=== PATIENT | male | born 1945 | race African-American/Black ===

== ENCOUNTER 2023-01-18 23:35 | Inpatient (IN) | payer OTHER, MEDICAID ==
[~2023-01-18] VITALS: Ht 175.3 cm; Wt 63.3 kg
[2023-01-19] MEDS ORDERED: ONDANSETRON HCL 4 MG/2 ML VIAL IV PRN (00:15)
[2023-01-19] MEDS ORDERED: ACETAMINOPHEN 325 MG TAB PO PRN (00:15)
[2023-01-19] MEDS ORDERED: SODIUM CHLORIDE 0.9% 1,000 ML IV SCH (00:15)
[2023-01-19] MEDS ORDERED: AMIO200T33 PEG (01:16)
[2023-01-19] MEDS ORDERED: METO25TA5 PEG (01:16)
[2023-01-19] MEDS ORDERED: FAMO-12 PEG (01:16)
[2023-01-19] MEDS ORDERED: APIX5TAB PEG (01:16)
[2023-01-19] MEDS ORDERED: ATOR40TA52 PEG (01:16)
[2023-01-19] MEDS ORDERED: HYDR-4902 PEG (01:16)
[2023-01-19] MEDS ORDERED: BISA10SU45 RE (01:16)
[2023-01-19 03:30] VITALS: BP 127/66
[2023-01-19] MEDS: HYDROcodone-ACET 5/325MG TAB PO PRN ×2 (04:18→13:57)
[2023-01-19 05:00] VITALS: BP 140/56
[2023-01-19 06:13] LABS: Basophils # (auto) 0 10 ^3/uL (0-0.2); Basophils % (auto) 0.7 % (0.0-2.0); Eosinophils # (auto) 0.1 10 ^3/uL (0-0.8); Eosinophils % (auto) 1.4 % (0.0-7.0); Hematocrit 33.3 % (41.0-53.0); Hemoglobin 11.3 g/dL (13.5-17.5); Lymphocytes # (auto) 1.5 10 ^3/uL (0.4-5.4); Lymphocytes % (auto) 32.7 % (10.0-50.0); Mean Corpuscular Hemoglobin 31.4 pg (28.0-32.0); Mean Corpuscular Hgb Conc. 33.9 g/dL (32.0-36.0); Mean Corpuscular Volume 92.6 fL (80.0-100.0); Monocytes # (auto) 0.7 10 ^3/uL (0-1.3); Monocytes % (auto) 14.3 % (0.0-12.0); Neutrophils # (auto) 2.4 10 ^3/uL (1.6-8.6); Neutrophils % (auto) 50.9 % (37.0-80.0); Nucleated Red Blood Cells % 0.1 %; White Blood Cell 4.6 10^3/uL (4.4-10.8)
[2023-01-19 06:15] LABS: Calcium 8.6 mg/dL (8.5-10.1)
[2023-01-19 06:20] LABS: BUN/Creatinine Ratio 6.6 (10.0-20.0)
[2023-01-19 09:00] VITALS: BP 120/69
[2023-01-19] MEDS ORDERED: ASPirin-EC 81 mg tab PO SCH (10:00)
[2023-01-19] MEDS: AMIODARONE HCL 200 MG TAB PEG SCH (10:28)
[2023-01-19] MEDS: FAMOTIDINE 20 MG TAB PEG SCH (10:29)
[2023-01-19 13:00] VITALS: BP 124/70
[2023-01-19] MEDS: APIXABAN 5 MG TAB PO SCH ×2 (13:57→21:43)
[2023-01-19 16:26] VITALS: BP 115/77
[2023-01-19] MEDS: ATORVASTATIN 20 MG TAB PO SCH (21:43)
[2023-01-19 22:00] VITALS: BP 123/77
[2023-01-20 05:00] VITALS: BP 135/72
[2023-01-20 06:05] LABS: Basophils # (auto) 0 10 ^3/uL (0-0.2); Basophils % (auto) 0.7 % (0.0-2.0); Eosinophils # (auto) 0.1 10 ^3/uL (0-0.8); Eosinophils % (auto) 2.4 % (0.0-7.0); Hematocrit 31.4 % (41.0-53.0); Hemoglobin 10.7 g/dL (13.5-17.5); Lymphocytes # (auto) 1.7 10 ^3/uL (0.4-5.4); Mean Corpuscular Hemoglobin 31.5 pg (28.0-32.0); Mean Corpuscular Hgb Conc. 33.9 g/dL (32.0-36.0); Mean Corpuscular Volume 92.9 fL (80.0-100.0); Monocytes # (auto) 0.7 10 ^3/uL (0-1.3); Monocytes % (auto) 14.4 % (0.0-12.0); Neutrophils # (auto) 2.1 10 ^3/uL (1.6-8.6); Neutrophils % (auto) 45.5 % (37.0-80.0); Nucleated Red Blood Cells % 0.2 %; Red Blood Cells 3.38 10^6/uL (4.5-5.90); White Blood Cell 4.7 10^3/uL (4.4-10.8)
[2023-01-20 06:22] LABS: BUN/Creatinine Ratio 7.8 (10.0-20.0); Calcium 8.4 mg/dL (8.5-10.1); Potassium 4.3 mmol/L (3.5-5.1)
[2023-01-20 06:27] LABS: Red Cell Distribution Width 27.6 % (11.8-14.3)
[2023-01-20] MEDS ORDERED: SODIUM CHL 0.9% 1000 ML BAG XX ONE (07:00)
[2023-01-20 09:00] VITALS: BP 126/64
[2023-01-20] MEDS: AMIODARONE HCL 200 MG TAB PEG SCH (11:38)
[2023-01-20] MEDS ORDERED: LISI2.5T47 PO (11:39)
[2023-01-20] MEDS: FAMOTIDINE 20 MG TAB PEG SCH (11:39)
[2023-01-20] MEDS: APIXABAN 5 MG TAB PO SCH ×2 (11:39→21:30)
[2023-01-20 13:00] VITALS: BP 136/68
[2023-01-20] MEDS ORDERED: ALBUMIN 25% 100 ML IV ONE (14:30)
[2023-01-20 16:36] VITALS: BP 149/78
[2023-01-20] MEDS: ATORVASTATIN 20 MG TAB PO SCH (21:29)
[2023-01-20 22:06] VITALS: BP 121/67
[2023-01-21] MEDS ORDERED: MUPI2OIN2 (01:07)
[2023-01-21 05:00] VITALS: BP 121/60
[2023-01-21 07:17] LABS: Basophils # (auto) 0 10 ^3/uL (0-0.2); Basophils % (auto) 0.8 % (0.0-2.0); Eosinophils # (auto) 0.1 10 ^3/uL (0-0.8); Eosinophils % (auto) 2.2 % (0.0-7.0); Hematocrit 33.9 % (41.0-53.0); Hemoglobin 11.3 g/dL (13.5-17.5); Lymphocytes # (auto) 1.6 10 ^3/uL (0.4-5.4); Lymphocytes % (auto) 35.7 % (10.0-50.0); Mean Corpuscular Hemoglobin 31.2 pg (28.0-32.0); Mean Corpuscular Hgb Conc. 33.3 g/dL (32.0-36.0); Mean Corpuscular Volume 93.6 fL (80.0-100.0); Monocytes # (auto) 0.7 10 ^3/uL (0-1.3); Monocytes % (auto) 14.9 % (0.0-12.0); Neutrophils # (auto) 2.1 10 ^3/uL (1.6-8.6); Neutrophils % (auto) 46.4 % (37.0-80.0); Nucleated Red Blood Cells % 0.1 %; Red Blood Cells 3.62 10^6/uL (4.5-5.90); White Blood Cell 4.5 10^3/uL (4.4-10.8)
[2023-01-21 07:39] LABS: Red Cell Distribution Width 27.4 % (11.8-14.3)
[2023-01-21 08:20] LABS: Anion Gap 6 (5-15); BUN/Creatinine Ratio 6.1 (10.0-20.0); Blood Urea Nitrogen 22 mg/dL (7-18); Calcium 8.4 mg/dL (8.5-10.1); Carbon Dioxide 25 mmol/L (21-32); Chloride 103 mmol/L (98-107); GFR African American 21 mL/min; GFR Non-African American 17 mL/min; Glucose 76 mg/dL (74-106); Potassium 4.5 mmol/L (3.5-5.1); Sodium 134 mmol/L (136-145)
[2023-01-21 09:28] VITALS: BP 134/71
[2023-01-21] MEDS ORDERED: MUPIROCIN 2% OINT 15gm or 22gm FOR MRSA NARES EACHNOSTRI SCH (10:00)
[2023-01-21] MEDS: APIXABAN 5 MG TAB PO SCH (10:15)
[2023-01-21] MEDS: FAMOTIDINE 20 MG TAB PEG SCH (10:15)
[2023-01-21] MEDS: AMIODARONE HCL 200 MG TAB PEG SCH (10:16)
[2023-01-21 13:23] VITALS: BP 140/59
[2023-01-21 16:24] VITALS: BP 139/59
== END 2023-01-21 19:03 | disposition home health service (06) | DRG 64 ==
LOC: TELE-WESTW 23:35
PROVIDERS: ADMIT Nurse Practitioner Family; ATTEND Nurse Practitioner Family
PROC: 5A1D70Z Performance of Urinary Filtration, Intermittent, Less than 6 Hours Per Day (ICD-10-PCS; principal; 2023-01-20)
DX: I63.311 Cerebral infarction due to thrombosis of right middle cerebral artery (principal); N18.6 End stage renal disease; I13.2 Hypertensive heart and chronic kidney disease with heart failure and with stage 5 chronic kidney disease, or end stage renal disease; I69.354 Hemiplegia and hemiparesis following cerebral infarction affecting left non-dominant side; G93.40 Encephalopathy, unspecified; R47.01 Aphasia; D63.1 Anemia in chronic kidney disease; I50.9 Heart failure, unspecified; B95.62 Methicillin resistant Staphylococcus aureus infection as the cause of diseases classified elsewhere; I48.91 Unspecified atrial fibrillation; E78.5 Hyperlipidemia, unspecified; F17.200 Nicotine dependence, unspecified, uncomplicated; H53.462 Homonymous bilateral field defects, left side; Z22.322 Carrier or suspected carrier of Methicillin resistant Staphylococcus aureus; Z74.01 Bed confinement status; Z82.49 Family history of ischemic heart disease and other diseases of the circulatory system; Z93.1 Gastrostomy status; Z99.2 Dependence on renal dialysis
CPT/HCPCS: 36415; 70551; 80048; 80061; 82306; 83036; 83970; 84100; 84484; 85025; 87081; 87340; 90935; 93306; 95819; 97110; 97163; 97530; G0378; J1642; P9047

== ENCOUNTER 2023-02-15 08:02 | Inpatient (IN) | payer OTHER, MEDICAID ==
[~2023-02-15] VITALS: Ht 182.9 cm; Wt 68.4 kg
[~2023-02-15 08:02] MED LIST: AMIO200T33 PEG; APIX5TAB PEG; ATOR40TA52 PEG; BISA10SU45 RE; FAMO-12 PEG; HYDR-4902 PEG; LISI2.5T47 PO; METO25TA5 PEG; MUPI2OIN2
[2023-02-15] MEDS ORDERED: SODIUM CHLORIDE 0.9% 1,000 ML IV ONE (08:30)
[2023-02-15 08:32] LABS: Basophils # (auto) 0 10 ^3/uL (0-0.2); Basophils % (auto) 0.3 % (0.0-2.0); Eosinophils # (auto) 0.1 10 ^3/uL (0-0.8); Eosinophils % (auto) 1.2 % (0.0-7.0); Hematocrit 39.6 % (41.0-53.0); Hemoglobin 13.3 g/dL (13.5-17.5); Lymphocytes # (auto) 1.7 10 ^3/uL (0.4-5.4); Lymphocytes % (auto) 33.8 % (10.0-50.0); Mean Corpuscular Hemoglobin 32.4 pg (28.0-32.0); Mean Corpuscular Hgb Conc. 33.5 g/dL (32.0-36.0); Mean Corpuscular Volume 96.7 fL (80.0-100.0); Monocytes # (auto) 0.6 10 ^3/uL (0-1.3); Monocytes % (auto) 11.4 % (0.0-12.0); Neutrophils # (auto) 2.7 10 ^3/uL (1.6-8.6); Neutrophils % (auto) 53.3 % (37.0-80.0); Nucleated Red Blood Cells % 0.1 %; Red Blood Cells 4.09 10^6/uL (4.5-5.90); Red Cell Distribution Width 22.5 % (11.8-14.3)
[2023-02-15 09:03] LABS: Potassium 4.4 mmol/L (3.5-5.1)
[2023-02-15 09:10] LABS: Albumin 2.6 g/dL (3.4-5.0); BUN/Creatinine Ratio 7.8 (10.0-20.0); Bilirubin, Total 0.8 mg/dL (0.2-1.0); Calcium 8.8 mg/dL (8.5-10.1); Magnesium 2.7 mg/dL (1.6-2.6); Total Protein 6.2 g/dL (6.4-8.2)
[2023-02-15] MEDS ORDERED: LORazepam 2MG/ML-1ML VIAL IV PRN (12:45)
[2023-02-15] MEDS ORDERED: HYDROcodone-ACET 5/325MG TAB PO PRN (12:45)
[2023-02-15] MEDS ORDERED: MORPHINE SULFATE INJ 2 MG/ml SYRG IV PRN (12:45)
[2023-02-15] MEDS ORDERED: ACETAMINOPHEN 325 MG TAB PO PRN (12:45)
[2023-02-15] MEDS ORDERED: DOCUSATE SOD 100 MG CAP PO PRN (12:45)
[2023-02-15] MEDS ORDERED: HYDROcodone-ACET 5/325MG TAB PEG PRN (12:45)
[2023-02-15] MEDS ORDERED: NITROGLYCERIN 0.4 MG SL TAB SL PRN (12:45)
[2023-02-15] MEDS: SODIUM CHLORIDE 0.9% 1,000 ML IV SCH (14:24)
[2023-02-15] MEDS ORDERED: cefTRIAXone 1GM/50ML D5W 50 ML IV ONE (17:45)
[2023-02-15] MEDS ORDERED: VANCOMYCIN PER PHARMACY 0 MG IV SCH (17:45)
[2023-02-15] MEDS ORDERED: VANCOMYCIN 1GM/250ML 250 ML IV ONE (18:30)
[2023-02-15] MEDS: APIXABAN 5 MG TAB PEG SCH (21:56)
[2023-02-16 05:00] VITALS: BP 106/67
[2023-02-16] MEDS: SODIUM CHLORIDE 0.9% 1,000 ML IV SCH ×2 (05:25→23:00)
[2023-02-16 08:00] VITALS: BP 129/71
[2023-02-16 08:31] LABS: Basophils # (auto) 0 10 ^3/uL (0-0.2); Basophils % (auto) 0.8 % (0.0-2.0); Eosinophils # (auto) 0.1 10 ^3/uL (0-0.8); Eosinophils % (auto) 1.7 % (0.0-7.0); Hematocrit 36.2 % (41.0-53.0); Hemoglobin 12.2 g/dL (13.5-17.5); Lymphocytes # (auto) 1.4 10 ^3/uL (0.4-5.4); Lymphocytes % (auto) 32.6 % (10.0-50.0); Mean Corpuscular Hemoglobin 32.5 pg (28.0-32.0); Mean Corpuscular Hgb Conc. 33.7 g/dL (32.0-36.0); Mean Corpuscular Volume 96.5 fL (80.0-100.0); Monocytes # (auto) 0.5 10 ^3/uL (0-1.3); Monocytes % (auto) 12.7 % (0.0-12.0); Neutrophils # (auto) 2.2 10 ^3/uL (1.6-8.6); Neutrophils % (auto) 52.2 % (37.0-80.0); Nucleated Red Blood Cells % 0.1 %; Red Blood Cells 3.75 10^6/uL (4.5-5.90); White Blood Cell 4.1 10^3/uL (4.4-10.8)
[2023-02-16 08:44] LABS: Red Cell Distribution Width 21.8 % (11.8-14.3)
[2023-02-16] MEDS ORDERED: SODIUM CHL 0.9% 1000 ML BAG XX ONE (08:45)
[2023-02-16 08:55] LABS: Calcium 8.4 mg/dL (8.5-10.1); Potassium 5.2 mmol/L (3.5-5.1)
[2023-02-16 08:57] LABS: BUN/Creatinine Ratio 7.7 (10.0-20.0)
[2023-02-16 09:00] VITALS: BP 129/71
[2023-02-16] MEDS ORDERED: cefTRIAXone 1GM/50ML D5W 50 ML IV SCH (09:00)
[2023-02-16] MEDS ORDERED: FAMOTIDINE 20 MG TAB PEG SCH (10:00)
[2023-02-16] MEDS: APIXABAN 5 MG TAB PEG SCH ×2 (10:33→23:03)
[2023-02-16] MEDS: AMIODARONE HCL 200 MG TAB PEG SCH (10:33)
[2023-02-16] MEDS: LISINOPRIL 5 MG TAB PEG SCH (10:34)
[2023-02-16] MEDS: ATORVASTATIN 20 MG TAB PEG SCH (10:34)
[2023-02-16 13:00] VITALS: BP 114/50
[2023-02-16 15:45] LABS: BUN/Creatinine Ratio 6.7 (10.0-20.0); Calcium 8.1 mg/dL (8.5-10.1)
[2023-02-16] MEDS ORDERED: VANCOMYCIN 1GM/250ML 250 ML IV ONE (16:00)
[2023-02-16 16:01] LABS: Potassium 2.9 mmol/L (3.5-5.1)
[2023-02-16 16:55] VITALS: BP 114/48
[2023-02-16] MEDS ORDERED: POTASSIUM CHL 20 Meq TABLET PO ONE (17:15)
[2023-02-16] MEDS ORDERED: AMOX500T92 PO (17:51)
[2023-02-16] MEDS ORDERED: POTASSIUM CHL 20MEQ/100ML 100 ML IV ONE (18:00)
[2023-02-16] MEDS ORDERED: AMOXICILLIN/CLAVULAN 500 MG TAB PO SCH (20:00)
[2023-02-16 22:00] VITALS: BP 105/59
[2023-02-16] MEDS: AMOXICILLIN/CLAV 200MG/5ML SUSP 50ML PO SCH (23:06)
[2023-02-17 05:00] VITALS: BP 121/60
[2023-02-17 06:19] LABS: Anion Gap 7 (5-15); Blood Urea Nitrogen 37 mg/dL (7-18); Calcium 8.4 mg/dL (8.5-10.1); Carbon Dioxide 26 mmol/L (21-32); Chloride 102 mmol/L (98-107); GFR African American 14 mL/min; GFR Non-African American 11 mL/min; Glucose 67 mg/dL (74-106); Potassium 3.9 mmol/L (3.5-5.1); Sodium 135 mmol/L (136-145)
[2023-02-17 08:05] VITALS: BP 120/63
[2023-02-17 09:00] VITALS: BP 120/63
[2023-02-17] MEDS: APIXABAN 5 MG TAB PEG SCH (10:56)
[2023-02-17] MEDS: AMIODARONE HCL 200 MG TAB PEG SCH (10:56)
[2023-02-17] MEDS: ATORVASTATIN 20 MG TAB PEG SCH (10:57)
[2023-02-17] MEDS: LISINOPRIL 5 MG TAB PEG SCH (10:57)
[2023-02-17] MEDS: AMOXICILLIN/CLAV 200MG/5ML SUSP 50ML PO SCH (10:58)
[2023-02-17 12:12] LABS: Hepatitis C Antibody Negative (Negative)
[2023-02-17 12:13] LABS: Hepatitis A Ab IgM Negative; Hepatitis B Core IgM Negative
[2023-02-17 12:21] VITALS: BP_SYST 115; BP_SYST 120; BP_DIAS 50; BP_DIAS 63
[2023-02-17 13:00] VITALS: BP 115/50
[2023-02-17] MEDS: SODIUM CHLORIDE 0.9% 1,000 ML IV SCH (14:45)
[2023-02-17 16:35] VITALS: BP 105/62
== END 2023-02-17 19:15 | disposition home health service (06) | DRG 70 ==
LOC: ER 08:02 → EDUNIT# 08:02 → EDBD 08:02 → TELE 12:58 → TELE-CENTR 23:44
PROVIDERS: ADMIT Internal Medicine; ATTEND Internal Medicine
PROC: 5A1D70Z Performance of Urinary Filtration, Intermittent, Less than 6 Hours Per Day (ICD-10-PCS; principal; 2023-02-16)
DX: G93.41 Metabolic encephalopathy (principal); N18.6 End stage renal disease; E44.0 Moderate protein-calorie malnutrition; I13.2 Hypertensive heart and chronic kidney disease with heart failure and with stage 5 chronic kidney disease, or end stage renal disease; I69.354 Hemiplegia and hemiparesis following cerebral infarction affecting left non-dominant side; I42.9 Cardiomyopathy, unspecified; E78.5 Hyperlipidemia, unspecified; I25.10 Atherosclerotic heart disease of native coronary artery without angina pectoris; I50.9 Heart failure, unspecified; I95.9 Hypotension, unspecified; R00.1 Bradycardia, unspecified; I48.91 Unspecified atrial fibrillation; G40.909 Epilepsy, unspecified, not intractable, without status epilepticus; Z82.49 Family history of ischemic heart disease and other diseases of the circulatory system; Z99.2 Dependence on renal dialysis; Z93.1 Gastrostomy status; Z68.20 Body mass index [BMI] 20.0-20.9, adult
CPT/HCPCS: 36415; 70450; 70551; 71045; 80048; 80053; 80074; 80202; 83735; 84132; 84484; 85025; 87040; 90935; 93005; 95819; 96360; 96361; G0378; J0696; J3480

== ENCOUNTER 2023-04-24 10:28 | Inpatient (IN) | payer OTHER, MEDICAID ==
[~2023-04-24] VITALS: Ht 182.9 cm; Wt 64.0 kg
[~2023-04-24 10:28] MED LIST changes: +AMOX500T92 PO; -LISI2.5T47 PO; -METO25TA5 PEG
[2023-04-24] MEDS ORDERED: SUCCINYLCHOLINE CHLORIDE 20 MG/ML 10ML VIAL IV ONE ×2 (10:37→10:45)
[2023-04-24] MEDS ORDERED: ETOMIDATE (2MG/ML) 20ML VIAL IV ONE ×3 (10:37→10:45)
[2023-04-24 11:00] VITALS: PULSE 92; RESP 12; O2SAT 95
[2023-04-24 11:25] LABS: Basophils # (auto) 0 10 ^3/uL (0-0.2); Basophils % (auto) 0.5 % (0.0-2.0); Eosinophils # (auto) 0 10 ^3/uL (0-0.8); Eosinophils % (auto) 0.4 % (0.0-7.0); Hematocrit 32.7 % (41.0-53.0); Lymphocytes # (auto) 1.4 10 ^3/uL (0.4-5.4); Mean Corpuscular Hemoglobin 32.5 pg (28.0-32.0); Mean Corpuscular Hgb Conc. 33.7 g/dL (32.0-36.0); Mean Corpuscular Volume 96.2 fL (80.0-100.0); Monocytes # (auto) 0.5 10 ^3/uL (0-1.3); Monocytes % (auto) 8.6 % (0.0-12.0); Neutrophils # (auto) 3.6 10 ^3/uL (1.6-8.6); Neutrophils % (auto) 65.5 % (37.0-80.0); Red Cell Distribution Width 18.8 % (11.8-14.3); White Blood Cell 5.5 10^3/uL (4.4-10.8)
[2023-04-24 11:44] LABS: Albumin 2.5 g/dL (3.4-5.0); Calcium 8.9 mg/dL (8.5-10.1); Magnesium 2.4 mg/dL (1.6-2.6); Potassium 3.8 mmol/L (3.5-5.1)
[2023-04-24 11:47] LABS: INR 1.14 (0.9-1.15); Partial Thromboplastin Time 29.6 SEC (24.5-34.5); Prothrombin Time 11.9 sec (9.3-11.8)
[2023-04-24 11:48] LABS: BUN/Creatinine Ratio 4.9 (10.0-20.0); Bilirubin, Total 0.6 mg/dL (0.2-1.0); Lactic Acid w/Reflex 8.9 mmol/L (0.4-2.0); Total Protein 6.6 g/dL (6.4-8.2)
[2023-04-24] MEDS ORDERED: cefTRIAXone 1GM/50ML D5W 50 ML IV ONE (14:45)
[2023-04-24] MEDS ORDERED: CIPROFLOXACIN 400MG/200ML 200 ML IV ONE (14:45)
[2023-04-24] MEDS ORDERED: NITROGLYCERIN 0.4 MG SL TAB SL PRN (17:15)
[2023-04-24] MEDS ORDERED: LORazepam 2MG/ML-1ML VIAL IV PRN (17:15)
[2023-04-24] MEDS ORDERED: ACETAMINOPHEN 325 MG TAB PO PRN (17:15)
[2023-04-24] MEDS ORDERED: ONDANSETRON HCL 4 MG/2 ML VIAL IV PRN (17:15)
[2023-04-24] MEDS ORDERED: HYDROcodone-ACET 5/325MG TAB PO PRN (17:15)
[2023-04-24] MEDS ORDERED: MORPHINE SULFATE INJ 2 MG/ml SYRG IV PRN (17:15)
[2023-04-24] MEDS ORDERED: APIXABAN 2.5 MG TAB PO SCH (18:00)
[2023-04-24] MEDS ORDERED: APIXABAN 5 MG TAB PO SCH (18:00)
[2023-04-24 19:33] VITALS: PULSE 91; RESP 25; O2SAT 97
[2023-04-24] MEDS: ATORVASTATIN 20 MG TAB PEG SCH (22:37)
[2023-04-25 03:30] LABS: Alcohol, Urine < 3.0 mg/dL (0-10); Amphetamine Screen, Urine NEGATIVE (NEGATIVE); Barbiturate Scree,Urine NEGATIVE (NEGATIVE); Benzodiazephine Screen, Urine POSITIVE (NEGATIVE); Cannabinoid Screen, Urine NEGATIVE (NEGATIVE)
[2023-04-25 03:32] LABS: Urine Bacteria NONE SEEN /hpf (None Seen); Urine Blood 3+ /uL (Negative); Urine Clarity CLOUDY (Clear); Urine Color Red (Yellow); Urine Protein, UAD 2+ (Negative); Urine Specific Gravity 1.021 (1.001-1.035); Urine Urobilinogen Normal (Negative); Urine WBC 41 /hpf (0 - 3); Urine WBC Clumps PRESENT /hpf (None Seen); Urine pH 5.5 (5.0-8.0)
[2023-04-25 03:37] LABS: Cocaine Screen, Urine NEGATIVE (NEGATIVE); Opiate Scree,Urine NEGATIVE (NEGATIVE); Phencyclidine Screen, Urine NEGATIVE (NEGATIVE)
[2023-04-25 07:48] VITALS: PULSE 85; RESP 12; O2SAT 100
[2023-04-25 08:50] LABS: Basophils # (auto) 0 10 ^3/uL (0-0.2); Basophils % (auto) 0.7 % (0.0-2.0); Eosinophils # (auto) 0.1 10 ^3/uL (0-0.8); Eosinophils % (auto) 1.2 % (0.0-7.0); Hematocrit 28.1 % (41.0-53.0); Hemoglobin 9.7 g/dL (13.5-17.5); Lymphocytes # (auto) 1.4 10 ^3/uL (0.4-5.4); Lymphocytes % (auto) 31.3 % (10.0-50.0); Mean Corpuscular Hemoglobin 32.8 pg (28.0-32.0); Mean Corpuscular Hgb Conc. 34.4 g/dL (32.0-36.0); Mean Corpuscular Volume 95.3 fL (80.0-100.0); Monocytes # (auto) 0.6 10 ^3/uL (0-1.3); Neutrophils # (auto) 2.4 10 ^3/uL (1.6-8.6); Neutrophils % (auto) 53.8 % (37.0-80.0); Red Blood Cells 2.95 10^6/uL (4.5-5.90); Red Cell Distribution Width 18.9 % (11.8-14.3); White Blood Cell 4.5 10^3/uL (4.4-10.8)
[2023-04-25] MEDS ORDERED: SODIUM CHL 0.9% 1000 ML BAG XX ONE (09:00)
[2023-04-25 09:23] LABS: Potassium 3.5 mmol/L (3.5-5.1)
[2023-04-25 09:34] LABS: Albumin 2.4 g/dL (3.4-5.0); BUN/Creatinine Ratio 5.2 (10.0-20.0); Bilirubin, Total 0.8 mg/dL (0.2-1.0); Calcium 8.6 mg/dL (8.5-10.1); Total Protein 6.6 g/dL (6.4-8.2)
[2023-04-25] MEDS ORDERED: FAMOTIDINE 20 MG TAB PEG SCH (10:00)
[2023-04-25 11:21] LABS: Base Excess -5.3 mmol/L (-2.0-2.0)
[2023-04-25] MEDS: cefTRIAXone 1GM/50ML D5W 50 ML IV SCH (11:33)
[2023-04-25] MEDS: ENOXAPARIN SOD 30 MG/0.3 ML SYRINGE SC SCH (11:33)
[2023-04-25] MEDS: AMIODARONE HCL 200 MG TAB PEG SCH (11:33)
[2023-04-25] MEDS ORDERED: ACETAMINOPHEN 650 mg PER 20.3 mL UD GT PRN (12:00)
[2023-04-25 19:35] VITALS: PULSE 85; RESP 16; O2SAT 98
[2023-04-25] MEDS: ATORVASTATIN 20 MG TAB PEG SCH (22:14)
[2023-04-25 23:59] VITALS: BP 119/72; PULSE 89; RESP 18; TEMP 98.3; O2SAT 92
[2023-04-26] VITALS (7 sets, daily range): BP systolic 119–136; BP diastolic 69–73; PULSE 71–89; RESP 16–18; TEMP 98.3–99.5; O2SAT 92–100
[2023-04-26] MEDS: ENOXAPARIN SOD 30 MG/0.3 ML SYRINGE SC SCH (09:32)
[2023-04-26] MEDS: cefTRIAXone 1GM/50ML D5W 50 ML IV SCH (09:32)
[2023-04-26] MEDS: AMIODARONE HCL 200 MG TAB PEG SCH (09:38)
[2023-04-26] MEDS ORDERED: B-COMPLEX W/ C & FOLIC ACID(NEPHROVITE TAB) PO SCH (11:00)
[2023-04-26] MEDS ORDERED: AMOX500T86 PO (12:40)
[2023-04-26] MEDS ORDERED: KEP500T PO (12:40)
[2023-04-27] MEDS ORDERED: SODIUM CHL 0.9% 1000 ML BAG XX ONE (07:00)
[2023-04-27] MEDS ORDERED: EPOETIN ALFA-EPBX 10,000 UNIT/1ML VIAL SC ONE (21:00)
== END 2023-04-26 18:35 | disposition home health service (06) | DRG 100 ==
LOC: EDBD 10:28 → ER 10:28 → TELE 17:08 → TELE-WESTW 04-25 23:47
PROVIDERS: ADMIT Internal Medicine; ATTEND Internal Medicine
PROC: 5A1D70Z Performance of Urinary Filtration, Intermittent, Less than 6 Hours Per Day (ICD-10-PCS; principal; 2023-04-25)
DX: G40.909 Epilepsy, unspecified, not intractable, without status epilepticus (principal); N18.6 End stage renal disease; I13.2 Hypertensive heart and chronic kidney disease with heart failure and with stage 5 chronic kidney disease, or end stage renal disease; N39.0 Urinary tract infection, site not specified; I50.22 Chronic systolic (congestive) heart failure; I48.20 Chronic atrial fibrillation, unspecified; I69.354 Hemiplegia and hemiparesis following cerebral infarction affecting left non-dominant side; D63.1 Anemia in chronic kidney disease; I25.10 Atherosclerotic heart disease of native coronary artery without angina pectoris; R31.29 Other microscopic hematuria; Z82.49 Family history of ischemic heart disease and other diseases of the circulatory system
CPT/HCPCS: 36415; 36600; 70450; 71045; 80053; 80307; 81001; 82306; 82805; 83605; 83735; 83970; 84100; 85025; 85610; 85730; 87040; 87081; 90935; 93005; 96365; 96367; 96368; G0378; J0330; J0696; J7060

== ENCOUNTER 2023-11-07 11:28 | Inpatient (IN) | payer OTHER, MEDICAID ==
[~2023-11-07] VITALS: Ht 180.3 cm; Wt 68.6 kg
[~2023-11-07 11:28] MED LIST changes: +AMOX500T86 PO; -AMOX500T92 PO; +KEP500T PO
[2023-11-07 13:12] LABS: Chloride 101 mmol/L (98-107); Potassium 4.1 mmol/L (3.5-5.1); Sodium 137 mmol/L (136-145)
[2023-11-07 13:13] LABS: Anion Gap 5 (5-15); Basophils # (auto) 0 10 ^3/uL (0-0.2); Basophils % (auto) 0.7 % (0.0-2.0); Carbon Dioxide 31 mmol/L (20-30); Eosinophils # (auto) 0.1 10 ^3/uL (0-0.8); Hematocrit 33.6 % (41.0-53.0); Hemoglobin 11.4 g/dL (13.5-17.5); Lymphocytes % (auto) 36.6 % (10.0-50.0); Mean Corpuscular Hemoglobin 34.1 pg (28.0-32.0); Mean Corpuscular Hgb Conc. 33.8 g/dL (32.0-36.0); Mean Corpuscular Volume 100.9 fL (80.0-100.0); Monocytes # (auto) 0.8 10 ^3/uL (0-1.3); Monocytes % (auto) 15.2 % (0.0-12.0); Neutrophils # (auto) 2.5 10 ^3/uL (1.6-8.6); Neutrophils % (auto) 45.5 % (37.0-80.0); Nucleated Red Blood Cells % 0.1 %; Red Blood Cells 3.33 10^6/uL (4.5-5.90); Red Cell Distribution Width 18.1 % (11.8-14.3); White Blood Cell 5.5 10^3/uL (4.4-10.8)
[2023-11-07 13:14] LABS: Calcium 9.6 mg/dL (8.5-10.1)
[2023-11-07 13:18] LABS: BUN/Creatinine Ratio 4.2 (10.0-20.0); Blood Urea Nitrogen 20 mg/dL (9-23); Glucose 85 mg/dL (74-106)
[2023-11-07 13:19] LABS: Blood Alcohol < 3.0 mg/dL (<10)
[2023-11-07 14:11] LABS: Lactic Acid w/Reflex 2.4 mmol/L (0.4-2.0)
[2023-11-07] MEDS ORDERED: NITROGLYCERIN 0.4 MG SL TAB SL PRN (15:30)
[2023-11-07] MEDS ORDERED: VANCOMYCIN PER PHARMACY 0 MG IV SCH (15:30)
[2023-11-07] MEDS ORDERED: MORPHINE SULFATE INJ 2 MG/ml SYRG IV PRN (15:30)
[2023-11-07] MEDS ORDERED: ONDANSETRON HCL 4 MG/2 ML VIAL IV PRN (15:30)
[2023-11-07 16:40] LABS: Albumin 3.2 g/dL (3.2-4.8); Bilirubin, Direct 0.2 mg/dL (<0.3); Bilirubin, Total 0.4 mg/dL (0.2-1.0); Total Protein 6.9 g/dL (5.7-8.2)
[2023-11-07 18:30] VITALS: PULSE 77; RESP 21; O2SAT 95
[2023-11-07 19:30] VITALS: O2SAT 95
[2023-11-07] MEDS: VANCOMYCIN 1GM/200ML 200 ML IV ONE (20:00)
[2023-11-07] MEDS: SODIUM CHLORIDE 0.9% 500 ML IV ONE (20:13)
[2023-11-07] MEDS: cefTRIAXone 1GM/50ML D5W 50 ML IV ONE (20:14)
[2023-11-07] MEDS: ALBUMIN 25% 100 ML IV SCH (21:00)
[2023-11-07] MEDS: SODIUM CHLORIDE 0.9% 500 ML IVB ONE (21:01)
[2023-11-07 21:04] LABS: Alanine Aminotransferase 10 U/L (7-40); Albumin 2.9 g/dL (3.2-4.8); Alkaline Phosphatase 107 U/L (46-116); Anion Gap 6 (5-15); Aspartate Aminotransferase 25 U/L (13-40); BUN/Creatinine Ratio 4.1 (10.0-20.0); Blood Urea Nitrogen 20 mg/dL (9-23); Calcium 9.2 mg/dL (8.7-10.4); Carbon Dioxide 26 mmol/L (20-30); Chloride 104 mmol/L (98-107); Glucose 83 mg/dL (74-106); Potassium 3.8 mmol/L (3.5-5.1); Sodium 136 mmol/L (136-145)
[2023-11-07 21:05] LABS: Bilirubin, Total 0.4 mg/dL (0.2-1.0); Total Protein 6.4 g/dL (5.7-8.2)
[2023-11-07] MEDS: ATORVASTATIN 20 MG TAB PEG SCH (22:47)
[2023-11-07] MEDS: levETIRAcetam 500 MG TAB PO SCH (22:47)
[2023-11-07] MEDS: APIXABAN 5 MG TAB PEG SCH (22:48)
[2023-11-08 01:11] LABS: Lactic Acid w/Reflex 2.1 mmol/L (0.4-2.0)
[2023-11-08 03:48] LABS: Rapid Influenza A Negative (Negative); Rapid Influenza B Negative (Negative)
[2023-11-08 03:49] LABS: COVID19 ANTIGEN SOFIA FIA NEGATIVE (NEGATIVE)
[2023-11-08] MEDS: ALBUMIN 25% 100 ML IV SCH (05:33)
[2023-11-08 06:21] LABS: Lactic Acid w/Reflex 2.4 mmol/L (0.4-2.0)
[2023-11-08 08:00] VITALS: PULSE 76; RESP 13; O2SAT 93
[2023-11-08] MEDS: cefTRIAXone 1GM/50ML D5W 50 ML IV SCH (09:42)
[2023-11-08] MEDS: AMIODARONE HCL 200 MG TAB PEG SCH (10:00)
[2023-11-08] MEDS: FAMOTIDINE (10MG/ML) 2ML VL IV SCH (10:11)
[2023-11-08] MEDS: VANCOMYCIN 1GM/200ML 200 ML IV ONE (17:21)
[2023-11-08 19:39] VITALS: PULSE 64; RESP 15; O2SAT 100
[2023-11-08] MEDS: levETIRAcetam 500 mg/100ml 100 ML IV SCH (21:55)
[2023-11-08] MEDS: APIXABAN 5 MG TAB PO SCH (22:00)
[2023-11-09] VITALS (8 sets, daily range): BP systolic 114–130; BP diastolic 60–74; PULSE 59–77; RESP 16–20; TEMP 97.1–98.2; O2SAT 93–100
[2023-11-09] MEDS: MAGNESIUM SULFATE 1GM/100ML 100 ML IV SCH (16:00)
[2023-11-09 18:49] LABS: Basophils # (auto) 0 10 ^3/uL (0-0.2); Basophils % (auto) 1.1 % (0.0-2.0); Eosinophils # (auto) 0.1 10 ^3/uL (0-0.8); Eosinophils % (auto) 3.4 % (0.0-7.0); Hemoglobin 8.6 g/dL (13.5-17.5); Lymphocytes # (auto) 1.4 10 ^3/uL (0.4-5.4); Lymphocytes % (auto) 40.7 % (10.0-50.0); Mean Corpuscular Hemoglobin 33.9 pg (28.0-32.0); Mean Corpuscular Hgb Conc. 33.3 g/dL (32.0-36.0); Mean Corpuscular Volume 101.8 fL (80.0-100.0); Monocytes # (auto) 0.5 10 ^3/uL (0-1.3); Monocytes % (auto) 13.8 % (0.0-12.0); Neutrophils # (auto) 1.4 10 ^3/uL (1.6-8.6); Nucleated Red Blood Cells % 0.1 %; Red Blood Cells 2.55 10^6/uL (4.5-5.90); Red Cell Distribution Width 17.6 % (11.8-14.3); White Blood Cell 3.4 10^3/uL (4.4-10.8)
[2023-11-09 19:14] LABS: Chloride 102 mmol/L (98-107); Potassium 3.8 mmol/L (3.5-5.1); Sodium 137 mmol/L (136-145)
[2023-11-09 19:15] LABS: Anion Gap 6 (5-15); Carbon Dioxide 29 mmol/L (20-30)
[2023-11-09 19:20] LABS: BUN/Creatinine Ratio 5.6 (10.0-20.0); Blood Urea Nitrogen 24 mg/dL (9-23); Glucose 94 mg/dL (74-106)
[2023-11-09 19:21] LABS: Magnesium 2.4 mg/dL (1.6-2.6)
[2023-11-09] MEDS: VANCOMYCIN 1GM/200ML 200 ML IV ONE (20:19)
[2023-11-10] VITALS (7 sets, daily range): BP systolic 107–138; BP diastolic 56–77; PULSE 62–72; RESP 16–20; TEMP 97.5–98.6; O2SAT 93–100
[2023-11-10 06:05] LABS: Basophils # (auto) 0 10 ^3/uL (0-0.2); Basophils % (auto) 0.6 % (0.0-2.0); Eosinophils # (auto) 0.1 10 ^3/uL (0-0.8); Lymphocytes # (auto) 1.4 10 ^3/uL (0.4-5.4); Monocytes # (auto) 0.4 10 ^3/uL (0-1.3); Neutrophils # (auto) 1.2 10 ^3/uL (1.6-8.6)
[2023-11-10 06:08] LABS: Eosinophils % (auto) 4.5 % (0.0-7.0); Hematocrit 24.7 % (41.0-53.0); Hemoglobin 8.5 g/dL (13.5-17.5); Lymphocytes % (auto) 45.1 % (10.0-50.0); Mean Corpuscular Hemoglobin 34.8 pg (28.0-32.0); Mean Corpuscular Hgb Conc. 34.5 g/dL (32.0-36.0); Mean Corpuscular Volume 100.8 fL (80.0-100.0); Monocytes % (auto) 11.9 % (0.0-12.0); Neutrophils % (auto) 37.9 % (37.0-80.0); Red Blood Cells 2.45 10^6/uL (4.5-5.90); Red Cell Distribution Width 17.7 % (11.8-14.3); White Blood Cell 3.1 10^3/uL (4.4-10.8)
[2023-11-10 06:21] LABS: Calcium 8.7 mg/dL (8.7-10.4); Chloride 104 mmol/L (98-107); Potassium 3.9 mmol/L (3.5-5.1); Sodium 138 mmol/L (136-145)
[2023-11-10 06:22] LABS: Anion Gap 4 (5-15); Carbon Dioxide 30 mmol/L (20-30)
[2023-11-10 06:27] LABS: BUN/Creatinine Ratio 5.2 (10.0-20.0); Blood Urea Nitrogen 18 mg/dL (9-23); Glucose 92 mg/dL (74-106); Magnesium 2.1 mg/dL (1.6-2.6)
[2023-11-10] MEDS ORDERED: SODIUM CHL 0.9% 1000 ML BAG XX ONE (07:00)
[2023-11-10 08:47] LABS: Hepatitis B Surface Antibody Negative (Negative)
[2023-11-10 08:59] LABS: Hepatitis B Surface Antigen Negative (Negative)
[2023-11-10] MEDS: VANCOMYCIN 1GM/200ML 200 ML IV ONE (18:40)
[2023-11-10] MEDS: levETIRAcetam 500 MG TAB PO SCH (21:24)
[2023-11-10] MEDS: EPOETIN ALFA-EPBX 10,000 UNIT/1ML VIAL SC ONE (21:27)
[2023-11-11] VITALS (7 sets, daily range): BP systolic 88–120; BP diastolic 52–72; PULSE 57–69; RESP 16–20; TEMP 97.3–98.1; O2SAT 97–100
[2023-11-11] MEDS: ADENOSINE 58 MG in GIVE UN-DILUTED 0 ML IV ONE (09:59)
[2023-11-11] MEDS: VANCOMYCIN 500 MG in D5W 5% 100 ML IV ONE (18:03)
== END 2023-11-11 19:00 | disposition home or self-care (01) | DRG 70 ==
LOC: EDBD 11:28 → ER 11:28 → TELE 15:26 → TELE-EAST 15:26
PROVIDERS: ADMIT Hospitalist; ATTEND Hospitalist
PROC: 5A1D70Z Performance of Urinary Filtration, Intermittent, Less than 6 Hours Per Day (ICD-10-PCS; principal; 2023-11-08)
PROC: 5A1D70Z Performance of Urinary Filtration, Intermittent, Less than 6 Hours Per Day (ICD-10-PCS; 2023-11-10)
DX: G93.41 Metabolic encephalopathy (principal); N18.6 End stage renal disease; I13.2 Hypertensive heart and chronic kidney disease with heart failure and with stage 5 chronic kidney disease, or end stage renal disease; G45.9 Transient cerebral ischemic attack, unspecified; E87.20 Acidosis, unspecified; I42.9 Cardiomyopathy, unspecified; I50.32 Chronic diastolic (congestive) heart failure; I95.9 Hypotension, unspecified; Z20.822 Contact with and (suspected) exposure to COVID-19; R56.9 Unspecified convulsions; R53.1 Weakness; Z99.2 Dependence on renal dialysis; I35.1 Nonrheumatic aortic (valve) insufficiency; I25.10 Atherosclerotic heart disease of native coronary artery without angina pectoris; I48.91 Unspecified atrial fibrillation; Z82.49 Family history of ischemic heart disease and other diseases of the circulatory system; Z86.73 Personal history of transient ischemic attack (TIA), and cerebral infarction without residual deficits; Z93.1 Gastrostomy status
CPT/HCPCS: 36415; 70450; 70551; 71045; 78452; 80048; 80053; 80076; 80202; 80320; 83605; 83735; 83880; 84484; 85025; 86706; 87040; 87081; 87340; 87426; 87804; 90935; 92610; 93005; 93017; 93306; 96365; G0378; J0153; J1642; J3490; J7060; P9047

== ENCOUNTER 2024-03-16 20:09 | Emergency (ER) | payer OTHER, MEDICAID ==
[~2024-03-16] VITALS: Ht 162.6 cm; Wt 40.0 kg
[~2024-03-16 20:09] MED LIST changes: -AMOX500T86 PO
[2024-03-16] MEDS ORDERED: CALCIUM GLUC 1,000mg/50ml-NS 100 ML IV ONE (20:15)
[2024-03-16] MEDS ORDERED: NOREPINEPHRINE 8 MG/250ML KIT 0 ML IV ONE (20:17)
[2024-03-16 20:38] VITALS: BP 88/36; PULSE 130; RESP 20; O2SAT 96
== END 2024-03-16 20:49 ==
LOC: EDBD 20:09 → ER 20:09
DX: I46.9 Cardiac arrest, cause unspecified (principal); R41.82 Altered mental status, unspecified; E16.2 Hypoglycemia, unspecified; I50.9 Heart failure, unspecified; I48.91 Unspecified atrial fibrillation; N18.6 End stage renal disease; Z86.73 Personal history of transient ischemic attack (TIA), and cerebral infarction without residual deficits; Z98.890 Other specified postprocedural states; Z79.899 Other long term (current) drug therapy
CPT/HCPCS: 92950; 93005; 99285; J0613